=== PATIENT | female | born 1980 | race American Indian/Alaskan Native ===

== ENCOUNTER 2017-02-24 08:08 | Day surgery (SDC) | payer BC ==
--- NOTE | 2017-02-23 20:25 | History and Physical Report ---
History of Present Illness Date of examination: 02/22/17 History of present illness: Patient has been reassessed/reevaluated. H&P has been reviewed. No interval changes. 36 YOBF [id number] Diagnosed with missed desires definitive treatment Past History : 4 Term Births: 1 Premature Births: 1 Living Children: 2 Para: 2 Aborta: 2 Elect. Ab: 1 Spont. Ab: 1 Ectopics: 0 # 1 Delivery date: 2007 Weeks Gestation: 26 labor: yes Delivery type: Delivery location: [facility] Sex: Male weight: 2-2 Comments: PPROM at 25wks, delivered 1 wk later # 2 Delivery date: 07/27/2012 Weeks Gestation: 38 Delivery type: Vaginal Anesthesia type: epidural Delivery location: [facility] Sex: male weight: 8.06 Comments: pre-eclampsia/eclampsia # 4 Delivery date: 02/17/2017 Weeks Gestation: 10 Delivery type: SAB Delivery location: [facility] History Uterine Surgery (not C/S): negative Operations: D&C:EAB Anesthesia Complications: negative Abnormal PAP: positive, colpo 2010, normal pap since 2011 Uterine Anomaly: negative CHERYL Exposure: negative Infertility: negative Infection History HIV Risk Eval: no Personal hx. of genital herpes: no Hx of STD: none Current Allergies (reviewed today): No known allergies Past Medical History: breast fibroademona - left hx pre-e hx labor Past Surgical History: D&C:EAB Family History Summary: General Comments - FH: No Family History of Breast Cancer No Family History of Colon Cancer No Family History of Ovarvian Cancer No Family History of DVT/PE on OCP HTN - mother, father, grandparents DM - mother MGM Social History: Patient is Patient is [employer] WORK[employer] - adult health Smoking History: Patient has never smoked. Risk Factors: Smoked Tobacco Use: Never smoker Smokeless Tobacco Use: Never Passive smoke exposure: no Drug use: no HIV high-risk behavior: no Alcohol use: no Exercise: no Seatbelt use: 100 % Review of Systems General Denies fever, chills, sweats, anorexia, fatigue, weakness, malaise, weight loss and sleep disorder. Denies vaginal discharge, incontinence, dysuria, hematuria, urinary frequency, amenorrhea, menorrhagia, abnormal vaginal bleeding, pelvic pain, genital sores, decreased libido, painful periods, painful sex, urinary urgency, hot flashes, vaginal dryness, vaginal itching and vaginal odor. CV Denies chest pains, palpitations, syncope, dyspnea on exertion, orthopnea, PND and peripheral edema. Resp Denies cough, dyspnea at rest, excessive sputum, hemoptysis, wheezing and pleurisy. GI Denies nausea, vomiting, diarrhea, constipation, change in bowel habits, abdominal pain, melena, hematochezia, jaundice, gas/bloating, indigestion/ heartburn, dysphagia and odynophagia. Breast Denies left breast lump, right breast lump, nipple discharge, bloody discharge from nipple, breast pain, abnormal mammogram and breast enlargement. Psych Denies depression, anxiety, irritability and mood swings. Past History Past Medical History: other (See HPI) Past Surgical History: Other (See HPI) Social history: other (See HPI) Family history: other (See HPI) Medications and Allergies Allergies Allergy/AdvReac Type Severity Reaction Status Date / Time No Known Allergies Allergy Unverified 02/22/17 17:06 Home Medications Medication Instructions Recorded Confirmed Last Taken Type No Known Home Medications [No 02/22/17 02/22/17 Unknown History Reported Home Medications] Review of Systems Constitutional: other (See HPI) Exam - Physical Exam Narrative exam: PHYSICAL EXAM HEENT: normocephalic, no lesions or deformities Skin no significant abnormal lesions or rashes Chest: respiratory effort normal, clear to auscultation CV: regular, normal S1-S2, no murmur, no rub, no gallop Abdomen: normal bowel sounds, soft, nontender, no HSM Musculoskeletal: grossly normal ROM in joints, no joint tenderness or muscle weakness Neuro: no gross anomalities Extremities: no clubbing, cyanosis, or edema P[employer] Exams Vulva/Vagina: normal appearance, no discharge, lesions. No evidence of cystocele or rectocele. Cervix: normal appearance, no lesions, no discharge Uterus: enlarged uterus 8 - 10 weeks size Adnexae: no masses or tenderness Rectovaginal: exam defered Results - Labs CBC & Chem 7: 02/24/17 08:40 Assessment and Plan - Patient Problems (1) Missed Current Visit: Yes Status: Acute Plan to address problem: Diagnosis explained to patient . Questions answered. Medical and surgical treatment options discussed Discussed risks and benefits of expectant management , treatments with medications and dilatation and curretage. Patient desires definitive treatment Patient desires D&C Discussed risk of surgery including infection, bleeding and risk of perforating her uterus. Questions answered. Patient understands and desires to proceed
[2017-02-24] MEDS ORDERED: SUBLIMAZE IV PRN (08:44)
[2017-02-24] MEDS ORDERED: ZOFRAN IV PRN (08:44)
[2017-02-24] MEDS ORDERED: DILAUDID IV PRN (08:44)
--- NOTE | 2017-02-24 08:48 | Anesthesia Day of Surgery ---
Anesthesia Day of Surgery - Day of Surgery Patient Examined: Yes Patient H&P Reviewed: Yes Patient is NPO: Yes
--- NOTE | 2017-02-24 08:49 | Anesthesia Consultation ---
Anesthesia Consult and Med Hx Date of service: 02/24/17 - Airway Anesthetic Teeth Evaluation: Good ROM Head & Neck: Adequate Mental/Hyoid Distance: Adequate Mallampati Class: Class II Intubation Access Assessment: Probably Good - Pulmonary Exam CTA: Yes - Cardiac Exam Cardiac Exam: RRR - Pre-Operative Health Status ASA Pre-Surgery Classification: ASA2 Proposed Anesthetic Plan: General (missed AB at 12 weeks) - Central Nervous System Hx Psychiatric Problems: No - Other Systems Hx Alcohol Use: Yes (occas) Hx Cancer: No
[2017-02-24 08:55] LABS: Hematocrit 36.1 % (30.3-42.9); Hemoglobin 12.1 gm/dl (10.1-14.3)
[2017-02-24] MEDS ORDERED: TRANSDERM-SCOP TD NR (09:00)
[2017-02-24] MEDS ORDERED: VERSED IV NR (09:00)
[2017-02-24] MEDS ORDERED: NACL 0.9% 1000 ML 1,000 ML IV SCH (09:00)
[2017-02-24] MEDS ORDERED: METHERGINE IM ONE ×2 (11:18→11:59)
[2017-02-24] MEDS ORDERED: SILVER NITRATE TP ONE ×2 (11:19→12:07)
[2017-02-24] MEDS ORDERED: DIPRIVAN 10 MG/ML IV ONE (11:35)
[2017-02-24] MEDS ORDERED: XYLOCAINE MPF 2% ONE (11:35)
[2017-02-24] MEDS ORDERED: ZOFRAN ONE (11:36)
[2017-02-24] MEDS ORDERED: TORADOL ONE (11:36)
[2017-02-24] MEDS ORDERED: DECADRON ONE (11:36)
[2017-02-24] MEDS ORDERED: NACL 0.9% IR ONE (12:00)
--- NOTE | 2017-02-24 12:14 | Operative Report ---
Operative Report Operative Report: Date of procedure: 02/24/2017 Pre-operative diagnosis: Missed Post-operative diagnosis: Same Procedure name(s): Suction dilatation and curettage Surgeon: Lowell Han MD Library Page: None Anesthesia: General EBL: 50 mL Complications: None Findings: A large amount of tissue consistent with products of conception Specimen(s): Uterine contents Procedure: The patient was brought operating room where general anesthesia was induced without difficulty. Patient was placed in dorsal lithotomy position prepped and draped in the usual sterile manner. Rubber catheter was used to empty her bladder. Speculum placed in the vagina. Tenaculum was placed at 12: 00. The cervix was dilated progressively with Hegar dilators. A 11 mm suction catheter was placed through the cervical os. Several passes of the suction catheter removed the uterine contents. General curettage was done with a banjo curettte. On until a gritty sensation was felt throughout the uterine cavity. Further suction with the suction curettage revealed no further products. All instruments were removed patient was hemostatic at the placing silver nitrate on the tenaculum sites. She was awakened in the operating room and accompanied to recovery room in good condition.
--- NOTE | 2017-02-24 12:17 | Short Stay Summary ---
Short Stay Documentation Date of service: 02/24/17 - History H&P: dictated Past Medical History: other (See HPI) Past Surgical History: Other (See HPI) Social history: other (See HPI) - Allergies and Medications Current Medications: Allergies No Known Allergies Allergy (Unverified 02/22/17 17:06) Home Medications Medication Instructions Recorded Confirmed Last Taken Type Acetaminophen/Codeine [Tylenol #3] 1 tab PO Q4HR PRN #20 tablet 02/24/17 Unknown Rx Doxycycline [Vibramycin CAP] 100 mg PO Q12HR #14 capsule 02/24/17 Unknown Rx Ibuprofen [Motrin 800 MG tab] 800 mg PO Q6H PRN #30 tablet 02/24/17 Unknown Rx Active Medications Hydromorphone HCl (Dilaudid) 0.25 mg IV Q10MIN PRN PRN Reason: Pain, Moderate (4-6) Stop: 02/24/17 13:00 Sodium Chloride (Nacl 0.9% 1000 Ml) 1,000 mls @ 75 mls/hr IV DIRECT ESSIE Last Admin: 02/24/17 09:21 Dose: 75 mls/hr Midazolam HCl (Versed) 2 mg IV PREOP NR Stop: 02/24/17 23:59 Last Admin: 02/24/17 09:29 Dose: 2 mg - Brief post op/procedure progress note Date of procedure: 02/24/17 (see dictated op note) Condition: stable - Hospital course Hospital course: Patient was admitted underwent the above him procedure without any complications. Patient will be discharged with follow-up in office in 1-2 weeks for postop check. - Disposition Condition at discharge: Good Disposition: DC-01 TO HOME OR SELFCARE - Discharge Diagnoses (1) Missed Status: Resolved Short Stay Discharge Plan Activity: advance as tolerated Diet: regular Additional Instructions: Patient office for fever chills nausea vomiting or pain uncontrolled by pain relief. Follow up with: CONSUELO HARRY MD [Primary Care Provider] - 7 Days Prescriptions: Ibuprofen [Motrin 800 MG tab] 800 mg PO Q6H PRN #30 tablet PRN Reason: Pain Acetaminophen/Codeine [Tylenol #3] 1 tab PO Q4HR PRN #20 tablet PRN Reason: Pain Doxycycline [Vibramycin CAP] 100 mg PO Q12HR #14 capsule
[2017-02-24] MEDS ORDERED: MOTRIN PO PRN (12:24)
--- NOTE | 2017-02-24 12:49 | Post Anesthesia Evaluation ---
- Post Anesthesia Evaluation Patient Participated: Yes Airway Patent: Yes Stable Respiratory Function: Yes Nausea/Vomiting: No Temp > 96.8F: Yes Pain Manageable: Yes Adequeate Hydration: Yes Anesthesia Complications: No
[2017-02-24 13:01] VITALS: BP 112/62
== END 2017-02-24 13:15 | disposition home or self-care (01) ==
LOC: OR 08:08
PROVIDERS: ATTEND Obstetrics & Gynecology
DX: O02.1 Missed abortion (principal); Z3A.12 12 weeks gestation of pregnancy
CPT/HCPCS: 36415; 59820; 85014; 85018; 86850; 86900; 86901; 88305; J1100; J1885; J2210; J2250; J2405; J2704; J7030